=== PATIENT | female | born 1985 | race African-American/Black ===

== ENCOUNTER 2018-02-17 20:50 | Emergency (ER) | payer SELFPAY ==
[~2018-02-17] VITALS: Ht 162.6 cm; Wt 72.5 kg
[2018-02-17 20:51] VITALS: BP 144/93
== END 2018-02-17 22:15 | disposition left against medical advice (07) ==
LOC: ER 20:50
DX: M79.645 Pain in left finger(s) (principal); Z53.21 Procedure and treatment not carried out due to patient leaving prior to being seen by health care provider